=== PATIENT | male | born 1970 | race Hispanic/Latino ===

== ENCOUNTER → 2021-08-08 | Day surgery (SDC) | payer OTHER ==
[~2021-08-08] MED LIST: HYOSCYAMINE SULFATE 0.5 MG/ML INJ ONE; METOPROLOL SUCC25 MG PO; MIDAZOLAM HCL 2 MG/2 ML VIAL ONE; NP THYROID60 MG PO; TADALAFIL10 MG PO; TESTOSTERO100 MG/1 M SC; VALACYCLOVIR500 MG PO; ZESTRIL10 MG PO
[2021-08-08 16:00] VITALS: BP 116/66
== END | disposition home or self-care (01) ==
LOC: OR 08-02 12:12
PROVIDERS: ATTEND Internal Medicine Gastroenterology
DX: K62.5 Hemorrhage of anus and rectum (principal); D12.2 Benign neoplasm of ascending colon; D12.3 Benign neoplasm of transverse colon; D12.4 Benign neoplasm of descending colon; K29.70 Gastritis, unspecified, without bleeding; K26.9 Duodenal ulcer, unspecified as acute or chronic, without hemorrhage or perforation; K20.90 Esophagitis, unspecified without bleeding; K57.32 Diverticulitis of large intestine without perforation or abscess without bleeding; K64.8 Other hemorrhoids; Z71.3 Dietary counseling and surveillance; I48.0 Paroxysmal atrial fibrillation; Q23.1 Congenital insufficiency of aortic valve; I49.3 Ventricular premature depolarization; I10 Essential (primary) hypertension; E03.9 Hypothyroidism, unspecified; Z01.810 Encounter for preprocedural cardiovascular examination; Z01.812 Encounter for preprocedural laboratory examination; Z20.822 Contact with and (suspected) exposure to COVID-19; Z79.82 Long term (current) use of aspirin; Z79.899 Other long term (current) drug therapy; Z68.32 Body mass index [BMI] 32.0-32.9, adult
CPT/HCPCS: 43239; 45380; 45385; 88305; 88312; 93005 ×2; J1980; J2250; U0002 ×2; 45378